=== PATIENT | female | born 1960 | race Caucasian/White ===

== ENCOUNTER → 2016-06-01 | Outpatient (CLI) | payer OTHER ==
--- NOTE | 2016-06-02 07:17 | MM ---
Reason for exam: history of breast cancer, conservation therapy. Last mammogram was performed 2 years ago. History: Patient is postmenopausal, has history of other cancer at age 49, has history of breast cancer at age 48, and had previous chest radiation therapy at age 48. Family history of breast cancer in paternal aunt at age 80 and breast cancer in maternal grandfather at age 60. Benign US RT VAD breast biopsy of the right breast, June 01, 2012. Benign US RT VAD breast biopsy of the right breast, June 01, 2012. Excisional biopsy of the right breast, October 04, 2008. Malignant right mammotome panel of the right breast, September 18, 2008. Lumpectomy, 2008. Radiation therapy of the right breast, 2008. Taking tamoxifen for 10 years. Took other hormone for 5 years. Physical Findings: Nurse did not find any significant physical abnormalities on exam. MG 3D Diag Mammo W/Cad PERNELL Bilateral CC and MLO view(s) were taken. Prior study comparison: June 03, 2014, bilateral MG diagnostic mammo w CAD PERNELL. May 31, 2013, CAD bilateral diagnostic mammogram. There are scattered fibroglandular densities. Finding #1: Architectural distortion in the upper outer quadrant, posterior position of the right breast consistent with known lumpectomy. Finding #2: There are typically benign round calcifications in both breasts. Persistent skin thickening in the right breast. These results were verbally communicated with the patient and result sheet given to the patient on 06/01/16. ASSESSMENT: Benign, BI-RAD 2 RECOMMENDATION: Follow-up diagnostic mammogram of both breasts in 1 year.
--- NOTE | 2016-06-02 07:24 | BD ---
EXAMINATION TYPE: MG DEXA axial skeleton. DATE OF EXAM: 06/01/2016 3:47 PM COMPARISON: NONE CLINICAL HISTORY: Breast carcinoma, C50.919 Height: Weight: FRAX RISK QUESTIONS: Alcohol (3 or more units per day): yes Family History (Parent hip fracture): yes/mother Glucocorticoids (More than 3mos): no (Ex: prednisone, prednisolone, methylprednisolone, dexamethasone, and hydrocortisone). History of Fracture in Adulthood: yes Secondary Osteoporosis: 1. Type 1 Diabetes: no 2. Hyperthyroidism: no 3. Menopause before 45: no 4. Malnutrition: no 5. Chronic liver disease: no Rheumatoid Arthritis: no Current Tobacco Use: no RISK FACTORS HISTORY OF: Hip Fracture (Right/Left): no Spine Fracture: no History of Wrist Fracture: no Surgery to Spine/Hip(right/left)/Wrist (right/left): right hip When: 2006 Family History of Osteoporosis: yes/ mother/grandmother Active: yes Diet low in dairy products/other sources of calcium: no Postmenopausal woman: age 48 Lost more than 2 inches in height since high school: no Frequent falls: no Adrenal Insufficiency: no MEDICATIONS: arimadex Thyroid Medications: levathyroxine, How Long: since 2009 Additional History: breast and thyroid cancer EXAM MEASUREMENTS: Bone mineral densitometry was performed using the [employer] System. Bone mineral density as measured about the Lumbar spine is: ----- L1-L4(G/cm2): 1.319 T Score Values are as follows: ----- L2: 0.8 ----- L3: 2.0 ----- L4: 1.0 ----- L1-L4: 1.2 Bone mineral density has: decreased -1.4 % since study of: 05.31.2013 Bone mineral density about the L hip (g/cm2): 1.036 T Score values are as follows: -----L Neck: 0.0 -----L Intertrochanter: -0.1 Bone mineral density has: decreased -4.6 % since study of: 05.31.2013 IMPRESSION: Normal bone density NOTE: T-SCORE=SD OF THE YOUNG ADULT MEAN.
== END | disposition home or self-care (01) ==
LOC: RADMAMWWP 14:37
PROVIDERS: ATTEND Internal Medicine Hematology & Oncology
DX: Z08 Encounter for follow-up examination after completed treatment for malignant neoplasm (principal); N95.1 Menopausal and female climacteric states; Z85.3 Personal history of malignant neoplasm of breast; Z79.890 Hormone replacement therapy
CPT/HCPCS: 77080; 77051 ×2; G0204; G0279

== ENCOUNTER → 2017-07-18 | Outpatient (CLI) | payer OTHER ==
--- NOTE | 2017-07-18 13:34 | MM ---
Reason for exam: additional evaluation requested from prior study. Last mammogram was performed 1 year and 2 months ago. History: Patient is postmenopausal, has history of other cancer at age 49, has history of breast cancer at age 48, and had previous chest radiation therapy at age 48. Family history of breast cancer in paternal aunt at age 80 and breast cancer in maternal grandfather at age 60. Benign US RT VAD breast biopsy of the right breast, June 01, 2012. Benign US RT VAD breast biopsy of the right breast, June 01, 2012. Excisional biopsy of the right breast, October 04, 2008. Malignant right mammotome panel of the right breast, September 18, 2008. Lumpectomy, 2008. Radiation therapy of the right breast, 2008. Taking tamoxifen for 10 years. Took other hormone for 5 years. Physical Findings: Nurse did not find any significant physical abnormalities on exam. MG 3D Diag Mammo W/Cad PERNELL Bilateral CC and MLO view(s) were taken. XCCL view(s) were taken of the right breast. Prior study comparison: June 01, 2016, bilateral MG 3d diag mammo w/cad PERNELL. June 03, 2014, bilateral MG diagnostic mammo w CAD PERNELL. There are scattered fibroglandular densities. Right posterior therapy change. These results were verbally communicated with the patient and result sheet given to the patient on 07/18/17. ASSESSMENT: Benign, BI-RAD 2 RECOMMENDATION: Follow-up diagnostic mammogram of both breasts in 1 year.
== END | disposition home or self-care (01) ==
LOC: RADMAMWWP 12:26
PROVIDERS: ATTEND Internal Medicine Hematology & Oncology
DX: Z08 Encounter for follow-up examination after completed treatment for malignant neoplasm (principal); Z85.3 Personal history of malignant neoplasm of breast
CPT/HCPCS: 77066; G0279

== ENCOUNTER 2018-06-08 00:45 | Inpatient (IN) | payer OTHER ==
[2018-06-08] MEDS ORDERED: ACETAMINOPHEN IV (For NPO) 1,000 MG in EMPTY BAG 1 BAG IVPB STA (00:59)
--- NOTE | 2018-06-08 01:16 | ED ---
Abdominal Pain HPI <PeñadelfinaSeven - Last Filed: 06/08/18 01:52> - General Source: patient, EMS, RN notes reviewed Mode of arrival: EMS Limitations: no limitations <Concepcion Thurston - Last Filed: 06/08/18 02:43> - General Chief Complaint: Abdominal Pain Stated Complaint: Appendicitis Time Seen by Provider: 06/08/18 00:47 - History of Present Illness Initial Comments: 58-year-old female patient presents to the emergency department today as a transfer from [facility] for acute appendicitis. Patient states that starting early this morning she had some vague upper abdominal pain and vomiting. Patient states her pain then moved into the right lower quadrant and became more severe. Patient states she did have fever at home. States she's been unable to eat or drink all day. She has had some gynecological surgeries but no other abdominal surgeries. She denies any constipation or diarrhea with this. Denies any chest pain, shortness breath, cough, nasal congestion, or sore throat. Patient denies any recent rash, constipation, back pain, numbness , tingling, dizziness, weakness, hematuria, dysuria, urinary urgency, urinary frequency, headache, visual changes, or any other complaints. (Concepcion Thurston) - Related Data Home Medications Medication Instructions Recorded Confirmed Acetaminophen [Tylenol] 500 mg PO Q4-6H PRN 06/08/18 06/08/18 Corbin/D3/Mag11/Zinc/Road Grader Operator/Chuy/Bor 1 each PO DAILY 06/08/18 06/08/18 [Caltrate 600+D Plus Tablet] Cholecalciferol (Vitamin D3) 2,000 unit PO ONCE 06/08/18 06/08/18 [Vitamin D3] Fish Oil/Dha/Epa [Fish Oil 1,200 1,000 mg PO DAILY 06/08/18 06/08/18 mg Fish Oil] Ibuprofen [Advil] 200 mg PO Q8HR PRN 06/08/18 06/08/18 Levothyroxine Sodium [Synthroid] 125 mcg PO DAILY 06/08/18 06/08/18 Turmeric Root Extract [Turmeric] 500 mg PO ONCE 06/08/18 06/08/18 Allergies Allergy/AdvReac Type Severity Reaction Status Date / Time celecoxib [From Celebrex] Allergy Unknown Verified 06/08/18 01:08 nitrofurantoin Allergy Unknown Verified 06/08/18 01:08 [From Macrodantin] Sulfa (Sulfonamide Allergy Unknown Verified 06/08/18 01:08 Antibiotics) sulfamethoxazole Allergy Unknown Verified 06/08/18 01:08 [From Bactrim] trimethoprim [From Bactrim] Allergy Unknown Verified 06/08/18 01:08 codeine AdvReac Nausea & Verified 06/08/18 01:08 Vomiting Review of Systems ROS Other: All systems not noted in ROS Statement are negative. <Seven Montez - Last Filed: 06/08/18 01:52> ROS Other: All systems not noted in ROS Statement are negative. <Concepcion Thurston - Last Filed: 06/08/18 02:43> ROS Statement: Those systems with pertinent positive or pertinent negative responses have been documented in the HPI. Past Medical History Past Medical History: Thyroid Disorder Past Surgical History: Breast Surgery, Section, Orthopedic Surgery, Tubal Ligation Additional Past Surgical History / Comment(s): thyroidectomy, right lumpectomy, right hip artificial hip, right foot graft, Smoking Status: Never smoker Past Alcohol Use History: Occasional Past Drug Use History: None Reported <Concepcion Thurston - Last Filed: 06/08/18 02:43> General Exam Limitations: no limitations General appearance: alert, in no apparent distress, other (Physical well- developed, well-nourished adult female patient in no acute distress. Vital signs upon presentation are temperature 102.2F, pulse 123, respirations 18, blood pressure 112/78, pulse ox 96% on room air.) Eye exam: Present: normal appearance, PERRL, EOMI. Absent: scleral icterus, conjunctival injection, periorbital swelling ENT exam: Present: normal exam, normal oropharynx, mucous membranes moist Respiratory exam: Present: normal lung sounds bilaterally. Absent: respiratory distress, wheezes, rales, rhonchi, stridor Cardiovascular Exam: Present: normal rhythm, tachycardia, normal heart sounds. Absent: systolic murmur, diastolic murmur, rubs, gallop, clicks GI/Abdominal exam: Present: soft, tenderness (Right lower quadrant tenderness), normal bowel sounds. Absent: distended, guarding, rebound, rigid Neurological exam: Present: alert, oriented X3, CN II-XII intact Psychiatric exam: Present: normal affect, normal mood Skin exam: Present: warm, dry, intact, normal color. Absent: rash <Concepcion Thurston - Last Filed: 06/08/18 02:43> Course <Seven Montez - Last Filed: 06/08/18 01:52> <Concepcion Thurston - Last Filed: 06/08/18 02:43> Vital Signs 06/08/18 00:51 Temperature 102.2 F H Pulse Rate 123 H Respiratory 18 Rate Blood Pressure 112/78 O2 Sat by Pulse 96 Oximetry - Reevaluation(s) Reevaluation #1: 06/08/18 01:52 I saw this patient in conjunction with the physician business office assistant. I performed independent history and physical exam. Agree with case management. Case discussed with surgeon on-call, Dr. Thompson. (Seven Montez) Medical Decision Making <Seven Montez - Last Filed: 06/08/18 01:52> - Radiology Data Radiology results: report reviewed <Concepcion Thurston - Last Filed: 06/08/18 02:43> - Medical Decision Making 58-year-old female patient presented to the emergency department today for evaluation after being transferred from [facility] for acute appendicitis. Patient is reporting right lower quadrant abdominal pain as well as vomiting throughout the day today. Physical examination did reveal right lower quadrant tenderness. I did review records from [facility] CT abdomen and pelvis with contrast was obtained and was positive for fluid-filled an enlarged appendix consistent with acute appendicitis. Patient's labs reviewed and did show an elevated white blood cell count at 17.1, neutrophil count 13. Patient symptoms, radiology findings, and lab findings are consistent with acute appendicitis. We'll admit to the hospital for surgical intervention. Patient has been given Zosyn. She'll be given overnight here for elevated temperature and pain. She verbalizes understanding and agrees with plan to (Concepcion Thurston) - Radiology Data CT abdomen and pelvis is obtained at [facility] shows fluid-filled enlarged appendix consistent with acute appendicitis. No bowel obstruction or mucosal thickening. Impression is by Dr. Patiño shows findings representing acute appendicitis. Small amount of free pelvic fluid. Inflammatory changes around the appendix. (Concepcion Thurston) Disposition <Seven Montez - Last Filed: 06/08/18 01:52> Decision to Admit Reason: Admit from Decision Date: 06/08/18 Decision Time: 02:43 <Concepcion Thurston M - Last Filed: 06/08/18 02:43> Clinical Impression: Acute appendicitis Disposition: ADMITTED IP TO THIS HOSP Condition: Serious Referrals: Benton Velazquez MD [Primary Care Provider] - 1-2 days
[2018-06-08] MEDS: ONDANSETRON 4 MG/2 ML VIAL IVP STA ×2 (01:48→16:51)
[2018-06-08] MEDS ORDERED: NALOXONE 0.4 MG/ML 1 ML VIAL IV PRN (02:41)
[2018-06-08] MEDS: MORPHINE SULFATE 4 MG/ML SYRINGE IV PRN ×3 (03:01→11:35)
[2018-06-08] MEDS: SODIUM CHLORIDE 0.9% 1,000 ML IV SCH ×5 (03:39→22:18)
[2018-06-08 04:46] VITALS: BMI 34.7
[2018-06-08] MEDS: ONDANSETRON 4 MG/2 ML VIAL IVP PRN (07:33)
[2018-06-08] MEDS ORDERED: HEPARIN SODIUM,PORCINE 5,000 UNIT/ML 1 ML VIAL SQ ONE (08:31)
[2018-06-08] MEDS ORDERED: ceFAZolin IN SWFI 2 GM/20 ML SYRINGE IVP ONE (08:31)
[2018-06-08] MEDS ORDERED: SODIUM CHLORIDE 0.9% 1,000 ML IV ONE (11:43)
[2018-06-08 12:26] LABS: Basophils % (A) 0 %; Eosinophils % (A) 0 %; HCT 40.8 % (34.0-46.0); HGB 13.8 gm/dL (11.4-16.0); Lymphocytes # (A) 1.3 k/uL (1.0-4.8); Lymphocytes % (A) 7 %; MCH 31.8 pg (25.0-35.0); MCHC 33.8 g/dL (31.0-37.0); MCV 94.1 fL (80.0-100.0); Mean Platelet Volume 6.9; Monocytes # (A) 0.6 k/uL (0-1.0); Monocytes % (A) 4 %; Neutrophils # (A) 15.2 k/uL (1.3-7.7); Neutrophils % (A) 88 %; Platelet Count 206 k/uL (150-450); RBC 4.33 m/uL (3.80-5.40); RDW 12.8 % (11.5-15.5); WBC 17.3 k/uL (3.8-10.6)
[2018-06-08 12:33] LABS: Anion Gap 9 mmol/L; Blood Urea Nitrogen 12 mg/dL (7-17); Calcium 8.6 mg/dL (8.4-10.2); Carbon Dioxide 25 mmol/L (22-30); Chloride 104 mmol/L (98-107); Glucose 115 mg/dL (74-99); Potassium 3.7 mmol/L (3.5-5.1); Sodium 138 mmol/L (137-145)
[2018-06-08] MEDS: PIPERACILLIN-TAZOBACTAM 3.375 GM in SODIUM CHLORIDE 0.9% 100 ML IVPB SCH ×2 (13:31→22:15)
--- NOTE | 2018-06-08 15:09 | P.GSHP ---
<Jennifer Felpie A - Last Filed: 06/08/18 15:07> History of Present Illness H&P Date: 06/08/18 Chief Complaint: abdominal pain CHIEF COMPLAINT: abdominal pain HISTORY OF PRESENT ILLNESS: 58-year-old female who was transferred from [place] secondary to abdominal pain. The patient states she began having generalized abdominal pain 2 days ago. She reports it was mostly near the epigastric region and then moved to the right lower quadrant. She reports episodes of nausea and vomiting prior to coming to the hospital. Denies constipation or diarrhea. Reports feeling feverish at home. CT report from previous hospital reports positive fluid-filled and enlarged appendix consistent with acute appendicitis. PAST MEDICAL HISTORY: See list. PAST SURGICAL HISTORY: See list. MEDICATIONS: See list. ALLERGIES: See list. SOCIAL HISTORY: No illicit drug use. Patient is a former cigarette smoker. REVIEW OF ORGAN SYSTEMS: CONSTITUTIONAL: Patient reports feeling feverish over the past week. HEENT: No troubles with vision or hearing. ENDOCRINE: No reports of thyroid disorders. CARDIOVASCULAR: Denies chest pain or pressure. RESPIRATORY: No shortness of breath or pneumonia. GASTROINTESTINAL: Reports abdominal pain 2 days. Initially near epigastric region and now right lower quadrant. NEURO: No reports of stroke or seizure disorders. PSYCH: No depression or suicidal ideation HEMATOLOGIC: No easy bruising or bleeding LYMPHATIC: The patient denies any lumps and bumps around the neck. GENITOURINARY: Denies any blood in urine or increased urinary frequency. MUSCULOSKELETAL: Denies back pain, stiffness or joint arthritis. SKIN: Denies rash or cellulitis PHYSICAL EXAM: VITAL SIGNS: Currently stable. GENERAL: Well-developed in no acute distress. HEENT: No sclera icterus. Extraocular movements grossly intact. Moist buccal mucosa. Head is atraumatic, normocephalic. Hears conversational speech. No nasal drainage. NECK: Supple without lymphadenopathy. CHEST: Non-labored respirations and equal bilateral excursions. CARDIOVASCULAR: Regular rate with regular rhythm. Palpable 2+ radial pulses. ABDOMEN: Soft. Nondistended. Tenderness upon palpation of all 4 quadrant, most severe in right lower quadrant MUSCULOSKELETAL: No clubbing, cyanosis or edema. NEUROLOGIC: No focal or lateralizing signs. Cranial nerves II through XII grossly intact. PSYCH: Appropriate affect. Alert and oriented to person, place and time. SKIN: Well perfused. Good skin turgor. ASSESSMENT: 1. Abdominal pain x 2 days near epigastric region and now right lower quadrant , CT scan shows fluid filled and enlarged appendix consistent with acute appendicitis 2. Sepsis, patient presented with leukocytosis, fever, and tachycardia, secondary to above PLAN: 1. Obtain CBC and BMP 2. 1L bolus, followed by IV fluids at 125cc/hr 3. NPO 4. Begin Zosyn 5. Patient to undergo robotic appendectomy today with Dr. Thompson Nurse practitioner note has been reviewed by physician. Signing provider agrees with the documented findings, assessment, and plan of care. Past Medical History Past Medical History: Thyroid Disorder History of Any Multi-Drug Resistant Organisms: None Reported Past Surgical History: Breast Surgery, Section, Orthopedic Surgery, Tubal Ligation Additional Past Surgical History / Comment(s): thyroidectomy, right lumpectomy, right hip artificial hip, right foot graft, Past Anesthesia/Blood Transfusion Reactions: No Reported Reaction Past Psychological History: No Psychological Hx Reported Smoking Status: Former smoker Past Alcohol Use History: Occasional Past Drug Use History: None Reported - Past Family History Mother Family Medical History: AFIB, Cancer, Diabetes Mellitus, Osteoarthritis (OA) Father Family Medical History: Hyperlipidemia, Hypertension, Renal Disease Additional Family Medical History / Comment(s): father of renal failure Medications and Allergies Home Medications Medication Instructions Recorded Confirmed Type Corbin/D3/Mag11/Zinc/Optoelectronics Engineer/Chuy/Bor 1 tab PO DAILY 06/08/18 06/08/18 History [Caltrate 600+D Plus Tablet] Cholecalciferol (Vitamin D3) 2,000 unit PO DAILY 06/08/18 06/08/18 History [Vitamin D3] Fish Oil/Dha/Epa [Fish Oil 1,200 1,000 mg PO DAILY 06/08/18 06/08/18 History mg Fish Oil] Levothyroxine Sodium [Synthroid] 125 mcg PO DAILY 06/08/18 06/08/18 History Turmeric Root Extract [Turmeric] 500 mg PO DAILY 06/08/18 06/08/18 History Allergies Allergy/AdvReac Type Severity Reaction Status Date / Time celecoxib [From Celebrex] Allergy Rash/Hives Verified 06/08/18 07:58 nitrofurantoin Allergy Swelling Verified 06/08/18 07:58 [From Macrodantin] Sulfa (Sulfonamide Allergy Unknown Verified 06/08/18 07:58 Antibiotics) sulfamethoxazole Allergy Rash/Hives Verified 06/08/18 07:58 [From Bactrim] trimethoprim [From Bactrim] Allergy Rash/Hives Verified 06/08/18 07:58 codeine AdvReac Nausea & Verified 06/08/18 07:58 Vomiting Surgical - Exam Vital Signs Temp Pulse Resp BP Pulse Ox 102.2 F H 123 H 18 112/78 96 06/08/18 00:51 06/08/18 00:51 06/08/18 00:51 06/08/18 00:51 06/08/18 00:51 Results - Labs 06/08/18 11:54 06/08/18 11:54 <Jeanette Thompson N - Last Filed: 06/08/18 16:32> Surgical - Exam Vital Signs Temp Pulse Resp BP Pulse Ox 102.2 F H 123 H 18 112/78 96 06/08/18 00:51 06/08/18 00:51 06/08/18 00:51 06/08/18 00:51 06/08/18 00:51 Results - Labs 06/08/18 11:54 06/08/18 11:54 Abnormal Lab Results - Last 24 Hours (Table) 06/08/18 06/08/18 Range/Units 11:54 11:54 WBC 17.3 H (3.8-10.6) k/uL Neutrophils # 15.2 H (1.3-7.7) k/uL Glucose 115 H (74-99) mg/dL Diabetes panel 06/08/18 Range/Units 11:54 Sodium 138 (137-145) mmol/L Potassium 3.7 (3.5-5.1) mmol/L Chloride 104 (98-107) mmol/L Carbon Dioxide 25 (22-30) mmol/L BUN 12 (7-17) mg/dL Creatinine 0.79 (0.52-1.04) mg/dL Glucose 115 H (74-99) mg/dL Calcium 8.6 (8.4-10.2) mg/dL Calcium panel 06/08/18 Range/Units 11:54 Calcium 8.6 (8.4-10.2) mg/dL Pituitary panel 06/08/18 Range/Units 11:54 Sodium 138 (137-145) mmol/L Potassium 3.7 (3.5-5.1) mmol/L Chloride 104 (98-107) mmol/L Carbon Dioxide 25 (22-30) mmol/L BUN 12 (7-17) mg/dL Creatinine 0.79 (0.52-1.04) mg/dL Glucose 115 H (74-99) mg/dL Calcium 8.6 (8.4-10.2) mg/dL Adrenal panel 06/08/18 Range/Units 11:54 Sodium 138 (137-145) mmol/L Potassium 3.7 (3.5-5.1) mmol/L Chloride 104 (98-107) mmol/L Carbon Dioxide 25 (22-30) mmol/L BUN 12 (7-17) mg/dL Creatinine 0.79 (0.52-1.04) mg/dL Glucose 115 H (74-99) mg/dL Calcium 8.6 (8.4-10.2) mg/dL
--- NOTE | 2018-06-08 16:33 | P.HPADDEND ---
H&P Addendum H&P Addendum Date: 06/08/18 Patient seen and evaluated. All questions were addressed. History consistent with appendicitis. We'll proceed with appendectomy today. Continue with IV antibiotics postop.
[2018-06-08] MEDS ORDERED: IV FLUID CONTINUATION 1,000 ML IV ONE (16:51)
[2018-06-08] MEDS ORDERED: DEXAMETHASONE SOD PHOS (MDV) 100 MG/10 ML VIAL IVP ONE (16:56)
[2018-06-08] MEDS ORDERED: ROCURONIUM BROMIDE 10 MG/ML 10 ML VIAL IV ONE (18:19)
[2018-06-08] MEDS ORDERED: NEOSTIGMINE 1 MG/ML 10 ML VIAL ONE (18:19)
[2018-06-08] MEDS ORDERED: GLYCOPYRROLATE 0.2 MG/ML 2 ML VIAL ONE (18:19)
[2018-06-08] MEDS ORDERED: MIDAZOLAM 2 MG/2 ML VIAL ONE (18:19)
[2018-06-08] MEDS ORDERED: LIDOCAINE 1% INJ 10MG/ML (20 ML MDV) ONE (18:19)
[2018-06-08] MEDS ORDERED: fentaNYL (PF) 50 MCG/ML 2 ML AMP ONE (18:19)
[2018-06-08] MEDS ORDERED: ONDANSETRON 4 MG/2 ML VIAL ONE (18:19)
[2018-06-08] MEDS ORDERED: PROPOFOL 10 MG/ML 20 ML VIAL IV ONE (18:19)
[2018-06-08] MEDS ORDERED: LACTATED RINGERS 1,000 ML IV ONE (18:51)
[2018-06-08] MEDS ORDERED: BUPIVACAIN-EPI 0.25%-1:200,000 30 ML VIAL SQ ONE (19:16)
[2018-06-08] MEDS ORDERED: METOCLOPRAMIDE 5 MG/ML 2 ML VIAL IVP PRN (20:29)
--- NOTE | 2018-06-08 20:40 | P.OP ---
Date of Procedure: 06/08/18 Description of Procedure: SURGEON: JEANETTE THOMPSON MD Preoperative Diagnosis: 1. Right lower quadrant abdominal pain 2. Acute appendicitis. 3. Hypothyroidism 4. Obesity due to excess calories, BMI 34.7 Postoperative Diagnosis: 1. Right lower quadrant abdominal pain 2. Acute appendicitis, ruptures with intra-abdominal abscess 3. Peritonitis 4. Hypothyroidism 5. Sepsis 6. Obesity due to excess calories, BMI 34.7 Procedure(s) Performed: 1. Robotic-assisted daVinci Xi laparoscopic lysis of adhesions over 30 minutes 2. Robotic-assisted daVinci Xi laparoscopic appendectomy 3. Placement of CONNIE drain #19 right lower quadrant 4. Peritoneal lavage 1000 mL normal saline Anesthesia: GETA, local Surgeon: Jeanette Thompson Estimated Blood Loss (ml): 5 Pathology: other (appendix, aerobic and anerobic culture of peritoneal fluid from peritonitis) Condition: stable Disposition: floor Operative Findings: 1. Localized abscess over 50-mL drained right lower quadrant 2. Gangrenous ruptured purulent appendicitis near base of appendix 3. Abdomen irrigated with 1000-mL normal saline 4. CONNIE drain placed at right lower quadrant of abscess pocket 5. Appendix resected at base with inflammation at cecum 6. Staple line hemostatic INDICATIONS: The patient is a 58-year-old female who presents with acute appendicitis including fevers and peritonitis consistent with sepsis. Surgical intervention was described in detail. Benefits and risks, including infection, open surgery, and possibility for additional surgery was discussed at length. Informed consent was obtained. All questions of the patient and family were answered. DESCRIPTION: The patient was transferred to the operating room and placed in supine position. The patient had previously voided. The abdomen was then prepped and draped in standard sterile fashion as Ioban was placed along the abdomen to minimize any contamination of skin floor. After a timeout protocol was performed, attention was then brought to the left upper quadrant whereby a 0 degree 5 mm laparoscopic trocar entry was performed. The abdominal cavity was entered and insufflated to 15 mmHg pressure, which was tolerated well. Diagnostic laparoscopy demonstrated no injury to bowel, viscera or mesentery. Adhesions were confirmed of the right lower quadrant of omentum, small bowel to the abdominal wall. Localized abscess was found. Next a robotic 12-mm trocar was placed along the right upper quadrant, 15-cm superior from the pelvis. A 8 mm port was placed along the left lower quadrant and another 8-mm port along the epigastrium. Ports were placed 10 cm apart from each other including 15-20 cm away from the target anatomy of the right pelvis. The patient was then placed in Trendelenburg position, at least 14 and right side up at least 6. The robotic da Nicko XI system was primed and docked from the left side of the patient. Using atraumatic graspers and vessel sealer, the robotic system was docked and primed as described. Instruments were interchanged by the assistant nurse manager including graspers, robotic stapler and vessel sealer. Next, attention was brought to identify the cecum. A systematic view within the abdominal cavity was started with the small bowel which was remarkable for diffuse fibrinous exudate throughout the pelvis. The base of the cecum was with inflammation. The appendix was ruptured near the base with moderate dissection performed. The abscess of 50-mL was aspirated from the abdomen. A 45 mm blue robotic staple loads were fired along the base of the appendix. The staple line was hemostatic. Hemostasis was checked prior to undocking the robot. The robot was undocked. I re-scrubbed into the case. A round #19 drain was placed via the left lower quadrant port and positioned at the right lower quadrant and pelvis after irrigating the abdomen with 1000-mL of normal saline until the aspirant was clear. A drain stitch 2-0 nylon was placed with the bulb attached separately. The specimen was removed from the abdominal cavity with an Endo Catch bag through the 12 mm trocar at the right upper quadrant. All instruments and pneumoperitoneum were evacuated from the abdominal cavity. Local anesthetic was infiltrated to all wounds for postop analgesia. All incisions were also cleansed with diluted hydrogen peroxide. An Optifoam surgical dressing was placed over the right upper quadrant incision and drain site. Exofin glue was applied to the rest of the skin incisions. The patient had tolerated the procedure well. The patient was extubated successfully. The patient was transferred to the postanesthesia care unit in stable condition.
[2018-06-08] MEDS ORDERED: ACETAMINOPHEN IV (For NPO) 1,000 MG in EMPTY BAG 1 BAG IVPB ONE (21:00)
[2018-06-09] MEDS: MORPHINE SULFATE 4 MG/ML SYRINGE IV PRN (01:37)
[2018-06-09] MEDS: PIPERACILLIN-TAZOBACTAM 3.375 GM in SODIUM CHLORIDE 0.9% 100 ML IVPB SCH ×3 (05:23→23:03)
[2018-06-09] MEDS: SODIUM CHLORIDE 0.9% 1,000 ML IV SCH ×5 (05:23→23:10)
[2018-06-09] MEDS: ENOXAPARIN 40 MG/0.4 ML SYRINGE SQ SCH (08:30)
[2018-06-09] MEDS: PANTOPRAZOLE 40 MG/10 ML VIAL IV SCH (08:30)
[2018-06-09] MEDS: HYDROcodone/APAP 5-325MG 1 EACH TAB PO PRN ×2 (08:39→14:59)
[2018-06-09 08:47] LABS: Basophils % (A) 0 %; Eosinophils % (A) 0 %; HCT 34.1 % (34.0-46.0); HGB 11.2 gm/dL (11.4-16.0); Lymphocytes # (A) 1.1 k/uL (1.0-4.8); Lymphocytes % (A) 6 %; MCH 30.6 pg (25.0-35.0); MCHC 32.8 g/dL (31.0-37.0); MCV 93.3 fL (80.0-100.0); Mean Platelet Volume 6.5; Monocytes # (A) 0.4 k/uL (0-1.0); Monocytes % (A) 2 %; Neutrophils # (A) 15.3 k/uL (1.3-7.7); Neutrophils % (A) 91 %; Platelet Count 180 k/uL (150-450); RBC 3.66 m/uL (3.80-5.40); RDW 12.7 % (11.5-15.5); WBC 16.8 k/uL (3.8-10.6)
--- NOTE | 2018-06-09 12:02 | P.PN ---
Subjective Progress Note Date: 06/09/18 CHIEF COMPLAINT: abdominal pain HISTORY OF PRESENT ILLNESS: 58-year-old female who was transferred from [place] secondary to abdominal pain. The patient was found to have acute appendicitis. Patient underwent robotic-assisted laparoscopic appendectomy, lysis of adhesions, and peritoneal lavage. POD #1. Patient was found to have gangrenous ruptured purulent appendicitis near the appendix and a localized abscess with over 50cc of drainage. Patient is resting comfortably at the bedside. Reports pain is tolerable. Passing flatus. Denies bowel movement. No nausea or vomiting. CONNIE intact. 220cc over last 24 hours per EMR. WBC is 16.8 today, down from 17.3 yesterday. She is afebrile. PHYSICAL EXAM: VITAL SIGNS: Currently stable. GENERAL: Well-developed in no acute distress. HEENT: No sclera icterus. Extraocular movements grossly intact. Moist buccal mucosa. Head is atraumatic, normocephalic. Hears conversational speech. No nasal drainage. NECK: Supple without lymphadenopathy. CHEST: Non-labored respirations and equal bilateral excursions. CARDIOVASCULAR: Regular rate with regular rhythm. Palpable 2+ radial pulses. ABDOMEN: Soft. Nondistended. Dressing clean dry and intact. CONNIE drain to left lower quadrant intact. MUSCULOSKELETAL: No clubbing, cyanosis or edema. NEUROLOGIC: No focal or lateralizing signs. Cranial nerves II through XII grossly intact. PSYCH: Appropriate affect. Alert and oriented to person, place and time. SKIN: Well perfused. Good skin turgor. ASSESSMENT: 1. Abdominal pain x 2 days 2. Acute appendicitis, ruptured with intra-abdominal abscess 3. Peritonitis 4. Sepsis, patient presented with leukocytosis, fever, and tachycardia, secondary to above 5. Obesity due to excess calories, BMI 34.7 PLAN: 1. Continue antibiotics 2. Consult infectious disease for evaluation 3. Monitor WBC. Daily CBC. 4. Incentive spirometry 5. Increase activity as tolerated 6. Patient may begin clear liquid diet this morning Nurse practitioner note has been reviewed by physician. Signing provider agrees with the documented findings, assessment, and plan of care. Objective - Vital Signs Vital signs: Vital Signs Temp 98.7 F 06/09/18 08:28 Pulse 85 06/09/18 08:28 Resp 16 06/09/18 08:45 BP 94/63 06/09/18 08:28 Pulse Ox 90 L 06/09/18 08:28 Intake & Output 06/08/18 06/09/18 06/09/18 18:59 06:59 18:59 Intake Total 1500 100 Output Total 255 Balance 1500 -155 Intake: IV 1500 100 Output: Drainage 220 Abdomen 220 Estimated Blood Loss 35 Other: Voiding Method Toilet Toilet # Voids 1 2 - Labs CBC & Chem 7: 06/09/18 06:59 06/08/18 11:54 Labs: Abnormal Lab Results - Last 24 Hours (Table) 06/08/18 06/08/18 06/09/18 Range/Units 11:54 11:54 06:59 WBC 17.3 H 16.8 H (3.8-10.6) k/uL RBC 3.66 L (3.80-5.40) m/uL Hgb 11.2 L (11.4-16.0) gm/dL Neutrophils # 15.2 H 15.3 H (1.3-7.7) k/uL Glucose 115 H (74-99) mg/dL Microbiology - Last 24 Hours (Table) 06/08/18 20:00 Gram Stain - Preliminary Other - Other Wound Culture - Preliminary 06/08/18 20:00 Anaerobic Culture - Preliminary Peritoneal Fluid Assessment and Plan (1) Ruptured appendicitis Current Visit: Yes Status: Acute Code(s): K35.32 - ACUTE APPENDICITIS WITH PERF AND LOC PERITONITIS, W/O ABSCS SNOMED Code(s): 27347641 (2) Sepsis Current Visit: Yes Status: Acute Code(s): A41.9 - SEPSIS, UNSPECIFIED ORGANISM SNOMED Code(s): 24993957 (3) Leukocytosis Current Visit: Yes Status: Acute Code(s): D72.829 - ELEVATED WHITE BLOOD CELL COUNT, UNSPECIFIED SNOMED Code(s): 714330612 (4) Obesity (BMI 30.0-34.9) Current Visit: Yes Status: Acute Code(s): E66.9 - OBESITY, UNSPECIFIED SNOMED Code(s): 827591760657600 (5) Peritonitis Current Visit: Yes Status: Acute Code(s): K65.9 - PERITONITIS, UNSPECIFIED SNOMED Code(s): 45688894 (6) Right lower quadrant abdominal pain Current Visit: Yes Status: Acute Code(s): R10.31 - RIGHT LOWER QUADRANT PAIN SNOMED Code(s): 924725951 (7) Acute appendicitis Current Visit: Yes Status: Acute Code(s): K35.80 - UNSPECIFIED ACUTE APPENDICITIS SNOMED Code(s): 54086693
[2018-06-09] MEDS: ONDANSETRON 4 MG/2 ML VIAL IVP PRN (23:07)
--- NOTE | 2018-06-10 04:39 | CONS ---
CONSULTATION DATE OF SERVICE: 06/09/2018. REASON FOR CONSULTATION: Abdominal abscess and ruptured appendicitis. HISTORY OF PRESENT ILLNESS: The patient is a 58-year-old female presenting to the ER at [facility] on 06/08/2018 in the morning with chief complaints of 1-day history of intractable nausea, vomiting, unable to keep anything down along with the right lower abdominal pain. The pain has been mostly sharp in nature, almost 10/10, with severe. The patient denies any diarrhea or any constipation. The patient did have associated fever with chills. With these symptoms, the patient did present to the hospital. The patient has been diagnosed with acute appendicitis. Patient was taken to the OR last night. The patient was noticed to have acute ruptured appendicitis with intraabdominal abscess. The patient is status post laparoscopic lysis of adhesions and laparoscopic appendectomy and drainage of an abscess and drain placement. The patient postop has been treated with Zosyn. I was asked to see the patient today for further recommendation regarding antibiotic therapy. The patient did have fever 102.2 Fahrenheit on admission, with afebrile this morning. The patient also had elevated white count 17.3, repeat 16.8. Further cultures are currently pending. REVIEW OF SYSTEMS: Positive points have been mentioned in HPI. Rest of the 14 systems has been negative. PAST MEDICAL HISTORY: Hypothyroidism. PAST SURGICAL HISTORY: Surgical history: , tubal ligation, thyroidectomy, right lumpectomy, artificial hip and right foot surgery. SOCIAL HISTORY: Remote history of smoking. Occasionally drinks. No drug use. FAMILY HISTORY: Mother with history of atrial fibrillation, diabetes mellitus. Father with history of hypertension, hyperlipidemia and of renal failure. ALLERGIES: TO CELEBREX, NITROFURANTOIN, SULFA AND CODEINE. MEDICATIONS: Medications include the patient is currently on [place], Lovenox, Reglan, morphine sulfate, Narcan, Zofran, Protonix, Zosyn. PHYSICAL EXAMINATION: Her blood pressure is a 94/63, pulse of 85, temperature 98.7. She is 98% on room air. General description is a middle-aged female up in the chair in no distress. No tachypnea or accessory muscles of respiration use. HEENT: Shows no pallor or scleral icterus. Oral mucosal membranes are dry. No pharyngeal erythema or thrush. Neck: Trachea central. No thyromegaly. Lungs unlabored breathing. Clear to auscultation anteriorly. No wheeze or crackles. Heart S1, S2. Regular rate and rhythm. . ABDOMEN: Soft, no tenderness. No guarding. No rigidity. EXTREMITIES: No edema of feet. Skin examination: No rash or mass palpable. Neurological: Patient is awake, alert, oriented times three. Mood and affect normal. LABS: Hemoglobin is 11.2, white count 16.8. The patient is a 17.3. DIAGNOSTIC IMPRESSION AND PLAN: Patient with intraabdominal abscess from ruptured appendicitis status post laparoscopic appendectomy and drainage of the abscess in this patient who presented to hospital with sepsis with fever 102 Fahrenheit, tachycardia and elevated white count. The likely organism needed to cover will be the enteric gram-negative both aerobes and anaerobes in this patient who has not been on antibiotic in the recent past could be sensitive pathogen such as E coli. PLAN: 1. Zosyn 3.375 q.8h should provide adequate coverage for the gram pathogen. Both aerobes and anaerobes that will be continued while we wait for the culture to finalize. 2. Depending upon clinical response as well as cultures, will adjust her medications further if needed. Thank you for this consultation. Will follow this patient along with you. MMODL / IJN: [id number] /
[2018-06-10] MEDS: PIPERACILLIN-TAZOBACTAM 3.375 GM in SODIUM CHLORIDE 0.9% 100 ML IVPB SCH ×3 (05:05→21:28)
[2018-06-10] MEDS: SODIUM CHLORIDE 0.9% 1,000 ML IV SCH ×4 (05:06→22:14)
[2018-06-10 08:24] LABS: Basophils % (A) 0 %; Eosinophils # (A) 0.1 k/uL (0-0.7); Eosinophils % (A) 0 %; HGB 11.1 gm/dL (11.4-16.0); Lymphocytes % (A) 12 %; MCH 30.7 pg (25.0-35.0); MCHC 32.8 g/dL (31.0-37.0); MCV 93.7 fL (80.0-100.0); Mean Platelet Volume 6.6; Monocytes # (A) 0.5 k/uL (0-1.0); Monocytes % (A) 3 %; Neutrophils # (A) 14.1 k/uL (1.3-7.7); Neutrophils % (A) 84 %; Platelet Count 203 k/uL (150-450); RBC 3.63 m/uL (3.80-5.40); RDW 12.8 % (11.5-15.5); WBC 16.8 k/uL (3.8-10.6)
--- NOTE | 2018-06-10 10:09 | P.PN ---
Subjective Progress Note Date: 06/10/18 Principal diagnosis: Appendicitis Patient doing better today. Her pain is improved. White blood cell count 16.8. She is tolerating clears and is hungry. She had a bowel movement. Objective - Vital Signs Vital signs: Vital Signs Temp 98.3 F 06/10/18 08:00 Pulse 86 06/10/18 08:00 Resp 16 06/10/18 08:00 BP 113/74 06/10/18 08:00 Pulse Ox 93 L 06/10/18 08:00 Intake & Output 06/09/18 06/10/18 06/10/18 18:59 06:59 18:59 Intake Total 1300 118 Output Total 140 Balance 1300 -22 Intake: Intake, IV Titration 1100 Amount Piperacillin-Tazobactam 3 100 .375 gm In Sodium Chloride 0.9% 100 ml @ 25 mls/hr IVPB Q8H DAF[facility] Rx#: [id number] Sodium Chloride 0.9% 1, 1000 000 ml @ 125 mls/hr IV . Q8H DAFNE Rx#:[id number] Oral 200 118 Output: Drainage 140 Abdomen 140 Other: Voiding Method Toilet # Voids 1 # Bowel Movements 2 - Exam Abdomen: Soft, nondistended, mild tenderness, incisions clean and dry - Labs CBC & Chem 7: 06/10/18 07:29 06/08/18 11:54 Labs: Abnormal Lab Results - Last 24 Hours (Table) 06/10/18 Range/Units 07:29 WBC 16.8 H (3.8-10.6) k/uL RBC 3.63 L (3.80-5.40) m/uL Hgb 11.1 L (11.4-16.0) gm/dL Neutrophils # 14.1 H (1.3-7.7) k/uL Microbiology - Last 24 Hours (Table) 06/08/18 20:00 Gram Stain - Preliminary Other - Other Wound Culture - Preliminary Gram Neg Bacilli Assessment and Plan (1) Acute appendicitis Narrative/Plan: Increase diet. Continue to manage. Ambulate. Recheck CBC tomorrow. Current Visit: Yes Status: Acute Code(s): K35.80 - UNSPECIFIED ACUTE APPENDICITIS SNOMED Code(s): 60626995
[2018-06-10] MEDS: PANTOPRAZOLE 40 MG/10 ML VIAL IV SCH (10:43)
[2018-06-10] MEDS: ENOXAPARIN 40 MG/0.4 ML SYRINGE SQ SCH (10:43)
[2018-06-10] MEDS ORDERED: MORPHINE ORAL SOLN 10 MG/5 ML CUP PO PRN (16:26)
[2018-06-10] MEDS: HYDROcodone/APAP 5-325MG 1 EACH TAB PO PRN (22:41)
--- NOTE | 2018-06-11 00:18 | PN ---
PROGRESS NOTE DATE OF SERVICE: 06/10/2018. REASON FOR FOLLOWUP: Abdominal abscess from ruptured appendicitis. INTERVAL HISTORY: The patient is currently afebrile. She is breathing comfortably. Abdominal pain is currently controlled. Denies having any nausea, vomiting, or any diarrhea. PHYSICAL EXAMINATION: Blood pressure is 115/77 with a pulse of 73, temperature 98.4. He is 98% on room air. GENERAL DESCRIPTION: A middle-aged female up in the bed in no distress. RESPIRATORY SYSTEM: Unlabored breathing. Decreased breath sounds in the bases. No wheeze. HEART: S1, S2. Regular rate and rhythm. ABDOMEN: Soft. Mildly distended. No guarding or rigidity. LABS: White count still elevated at 16.8. The abdominal cultures with an E coli and Enterobacter cloacae, both sensitive to Zosyn. DIAGNOSTIC IMPRESSION AND PLAN: Patient with abdominal abscess from a ruptured appendicitis, status post laparoscopic appendectomy. The patient is to continue at this time with Zosyn. Wait for the white count to normalize before transitioning to oral antibiotic therapy. Continue with supportive care. MMODL / IJN: [id number] /
[2018-06-11] MEDS: SODIUM CHLORIDE 0.9% 1,000 ML IV SCH ×3 (01:17→21:17)
[2018-06-11] MEDS: LEVOTHYROXINE 125 MCG TAB PO SCH (05:00)
[2018-06-11] MEDS: PIPERACILLIN-TAZOBACTAM 3.375 GM in SODIUM CHLORIDE 0.9% 100 ML IVPB SCH ×3 (05:00→21:16)
[2018-06-11 08:07] LABS: Basophils % (A) 0 %; Eosinophils # (A) 0.3 k/uL (0-0.7); Eosinophils % (A) 2 %; HCT 34.5 % (34.0-46.0); HGB 11.4 gm/dL (11.4-16.0); Lymphocytes # (A) 3.2 k/uL (1.0-4.8); Lymphocytes % (A) 26 %; MCH 31.1 pg (25.0-35.0); MCV 94.2 fL (80.0-100.0); Mean Platelet Volume 7.1; Monocytes # (A) 0.6 k/uL (0-1.0); Monocytes % (A) 5 %; Neutrophils # (A) 8.1 k/uL (1.3-7.7); Neutrophils % (A) 65 %; Platelet Count 224 k/uL (150-450); RBC 3.66 m/uL (3.80-5.40); RDW 13.1 % (11.5-15.5); WBC 12.5 k/uL (3.8-10.6)
[2018-06-11] MEDS: ENOXAPARIN 40 MG/0.4 ML SYRINGE SQ SCH (08:52)
[2018-06-11] MEDS: PANTOPRAZOLE 40 MG TABLET PO SCH (08:52)
[2018-06-11] MEDS: metroNIDAZOLE 500 MG TAB PO SCH ×3 (11:00→22:50)
--- NOTE | 2018-06-11 11:49 | P.PN ---
Subjective Progress Note Date: 06/11/18 Principal diagnosis: Appendicitis Patient says she is having more gassy pain today. She is passing flatus and having bowel movement. Today's white blood cell count 12.5 which is improved. She is afebrile. She is tolerating diet. Objective - Vital Signs Vital signs: Vital Signs Temp 98.3 F 06/11/18 08:53 Pulse 79 06/11/18 08:53 Resp 16 06/11/18 08:53 BP 111/74 06/11/18 08:53 Pulse Ox 94 L 06/11/18 08:53 Intake & Output 06/10/18 06/11/18 06/11/18 18:59 06:59 18:59 Intake Total 625 1800 Output Total 100 50 Balance 525 1750 Intake: Intake, IV Titration 625 1800 Amount Piperacillin-Tazobactam 3 200 .375 gm In Sodium Chloride 0.9% 100 ml @ 25 mls/hr IVPB Q8H D[facility] Rx#: [id number] Sodium Chloride 0.9% 1, 625 1000 000 ml @ 125 mls/hr IV . Q8H DAF[facility] Rx#:[id number] Sodium Chloride 0.9% 1, 600 000 ml @ 75 mls/hr IV . [id number] DAFNE Rx#:[id number] Output: Drainage 100 50 Abdomen 100 50 Other: Voiding Method Toilet # Voids 2 2 - Exam Abdomen: Soft, mild tenderness, CONNIE serous, incisions clean and dry - Labs CBC & Chem 7: 06/11/18 07:21 06/08/18 11:54 Labs: Abnormal Lab Results - Last 24 Hours (Table) 06/11/18 Range/Units 07:21 WBC 12.5 H (3.8-10.6) k/uL RBC 3.66 L (3.80-5.40) m/uL Neutrophils # 8.1 H (1.3-7.7) k/uL Microbiology - Last 24 Hours (Table) 06/08/18 20:00 Gram Stain - Final Other - Other Wound Culture - Final Escherichia coli Enterobacter cloacae Assessment and Plan (1) Acute appendicitis Narrative/Plan: Continue antibiotics. Continue diet. Ambulate. Current Visit: Yes Status: Acute Code(s): K35.80 - UNSPECIFIED ACUTE APPENDICITIS SNOMED Code(s): 62784893
[2018-06-11] MEDS: HYDROcodone/APAP 5-325MG 1 EACH TAB PO PRN (21:16)
--- NOTE | 2018-06-11 23:35 | PN ---
PROGRESS NOTE DATE OF SERVICE: 06/11/2018. REASON FOR STAY: Abdominal abscess from ruptured appendicitis. INTERVAL HISTORY: The patient is afebrile. The patient's abdominal pain has improved. She has been able to tolerate a clear liquid diet. The patient denies having any chest pain or shortness of breath or cough and no diarrhea. PHYSICAL EXAMINATION: Blood pressure is 119/80 with a pulse of 74, temperature 98.4. She is 97% on room air. General description is a middle aged female lying in bed in no distress. HEENT examination reveals no pallor or scleral icterus. Oral mucosal membranes are dry. LUNGS: Unlabored breathing. Clear to auscultation anteriorly. Heart S1, S2. Regular rate and rhythm. Abdomen soft. No tenderness. Extremities: No edema of the feet. LABS: White count down to 12.5. The abdominal culture has been finalized with E coli and Enterobacter species to ciprofloxacin along with anaerobic gram-negative bacilli. DIAGNOSTIC IMPRESSION AND PLAN: Patient with abdominal abscess from a ruptured appendicitis status post laparoscopic appendectomy and lysis of adhesions. The patient is currently on Zosyn and Flagyl that will be transitioned to oral Cipro and Flagyl for another 10 days with close outpatient followup. Prescription has been sent to the pharmacy. Continue supportive care. Questions and concerns were answered. MMODL / IJN: [id number] /
[2018-06-12] MEDS: SODIUM CHLORIDE 0.9% 1,000 ML IV SCH (03:58)
[2018-06-12] MEDS: PIPERACILLIN-TAZOBACTAM 3.375 GM in SODIUM CHLORIDE 0.9% 100 ML IVPB SCH ×3 (03:59→12:15)
[2018-06-12] MEDS: LEVOTHYROXINE 125 MCG TAB PO SCH (05:21)
[2018-06-12 07:45] VITALS: BP 126/83; PULSE 78; RESP 18; TEMP 98.2
[2018-06-12 08:42] LABS: Basophils # (A) 0.1 k/uL (0-0.2); Basophils % (A) 1 %; Eosinophils # (A) 0.3 k/uL (0-0.7); Eosinophils % (A) 2 %; HGB 12.8 gm/dL (11.4-16.0); Lymphocytes # (A) 3.1 k/uL (1.0-4.8); Lymphocytes % (A) 24 %; MCH 30.8 pg (25.0-35.0); MCHC 32.8 g/dL (31.0-37.0); Mean Platelet Volume 6.9; Monocytes # (A) 0.7 k/uL (0-1.0); Monocytes % (A) 5 %; Neutrophils # (A) 8.5 k/uL (1.3-7.7); Neutrophils % (A) 66 %; Platelet Count 254 k/uL (150-450); RBC 4.15 m/uL (3.80-5.40); RDW 13.1 % (11.5-15.5); WBC 12.9 k/uL (3.8-10.6)
[2018-06-12] MEDS: PANTOPRAZOLE 40 MG TABLET PO SCH (10:27)
[2018-06-12] MEDS: ENOXAPARIN 40 MG/0.4 ML SYRINGE SQ SCH (10:27)
[2018-06-12] MEDS: metroNIDAZOLE 500 MG TAB PO SCH (10:28)
--- NOTE | 2018-06-12 10:48 | P.DS ---
<Jennifer Felipe Una - Last Filed: 06/12/18 10:46> Providers Date of admission: 06/08/18 20:31 Expected date of discharge: 06/12/18 Attending physician: Jeanette Thompson Consults: 06/09/18 11:51 Consult Physician Routine Consulting Provider: Rah Krishnamurthy Consult Reason/Comments: Peritonitis Do you want consulting provider notified?: Yes Primary care physician: Benton Velazquez - Discharge Diagnosis(es) (1) Ruptured appendicitis Status: Acute (2) Sepsis Status: Acute (3) Leukocytosis Status: Acute (4) Obesity (BMI 30.0-34.9) Status: Acute (5) Peritonitis Status: Acute (6) Right lower quadrant abdominal pain Status: Acute (7) Acute appendicitis Status: Acute Hospital Course: 58-year-old female who was transferred from [place] secondary to abdominal pain. The patient was found to have acute appendicitis. Patient underwent robotic-assisted laparoscopic appendectomy, lysis of adhesions, and peritoneal lavage. Patient was found to have gangrenous ruptured purulent appendicitis near the appendix and a localized abscess with over 50cc of drainage. Patient has done well postoperatively with no immediate complications. She is tolerating PO diet. Passing flatus and BMs. No nausea or vomiting. Vitals have been stable. She is afebrile. WBC 12.9 and trending downward. infectious disease prescribed Cipro and Flagyl at the time of discharge. CONNIE drain discontinued on the day of discharge. She will follow up with Dr. Thompson on 06/21/2018. She is stable for discharge home today. Discharge Diagnosis: 1. Abdominal pain x 2 days 2. Acute appendicitis, ruptured with intra-abdominal abscess 3. Peritonitis 4. Sepsis, patient presented with leukocytosis, fever, and tachycardia, secondary to above 5. Obesity due to excess calories, BMI 34.7 Nurse practitioner note has been reviewed by physician. Signing provider agrees with the documented findings, assessment, and plan of care. Patient Condition at Discharge: Stable Plan - Discharge Summary Discharge Rx Participant: Yes New Discharge Prescriptions: New HYDROcodone/APAP 5-325MG [[place] 5] 1 each PO Q4HR PRN #18 tab PRN Reason: Pain Ciprofloxacin HCl [Cipro] 500 mg PO Q12HR #20 tablet metroNIDAZOLE [Flagyl] 500 mg PO TID #30 tab Continue Levothyroxine Sodium [Synthroid] 125 mcg PO DAILY Fish Oil/Dha/Epa [Fish Oil 1,200 mg Fish Oil] 1,000 mg PO DAILY Cholecalciferol (Vitamin D3) [Vitamin D3] 2,000 unit PO DAILY [place]/D3/Mag11/Zinc/Search Engine Marketing Strategist/Chuy/Bor [Caltrate 600+D Plus Tablet] 1 tab PO DAILY Turmeric Root Extract [Turmeric] 500 mg PO DAILY Discharge Medication List [place]bin/D3/Mag11/Zinc/Search Engine Marketing Strategist/Chuy/Bor [Caltrate 600+D Plus Tablet] 1 tab PO DAILY 06/08 [History] Cholecalciferol (Vitamin D3) [Vitamin D3] 2,000 unit PO DAILY 06/08/18 [History] Fish Oil/Dha/Epa [Fish Oil 1,200 mg Fish Oil] 1,000 mg PO DAILY 06/08/18 [ History] Levothyroxine Sodium [Synthroid] 125 mcg PO DAILY 06/08/18 [History] Turmeric Root Extract [Turmeric] 500 mg PO DAILY 06/08/18 [History] HYDROcodone/APAP 5-325MG [[place] 5] 1 each PO Q4HR PRN #18 tab 06/09/18 [Rx] Ciprofloxacin HCl [Cipro] 500 mg PO Q12HR #20 tablet 06/12/18 [Rx] metroNIDAZOLE [Flagyl] 500 mg PO TID #30 tab 06/12/18 [Rx] Follow up Appointment(s)/Referral(s): Jeanette Thompson MD [STAFF PHYSICIAN] - 06/20/18 8:40 am (Appointment set at [address], [address] [place] [address] ) Benton Velazquez MD [Primary Care Provider] - 06/14/18 11:30 am Rah Krishnamurthy MD [STAFF PHYSICIAN] - 06/19/18 9:45 am Patient Instructions/Handouts: Appendicitis (GEN), Peritonitis (DC) Activity/Diet/Wound Care/Special Instructions: You make shower. No tub baths or soaking. No driving while taking [place]. No lifting over 10 pounds in 1 week. Diet as tolerated. Primary care physician to draw a CBC to evaluate WBC 2-3 days after discharge. Discharge Disposition: HOME SELF-CARE <Jeanette Thompson N - Last Filed: 06/12/18 17:06> Procedures: Patient felt much better with bowel movements. CONNIE was completely serous with moderate decreased output. Dressing removed without cellulitis or infection. Patient verbalized understanding of discharge instructions. Patient deemed stable for discharge.
--- NOTE | 2018-06-12 13:51 | PN ---
PROGRESS NOTE DATE OF SERVICE: 06/12/2018 REASON FOR FOLLOWUP VISIT: Abdominal abscess from ruptured appendicitis. INTERVAL HISTORY: The patient is currently afebrile. She is breathing comfortably. Patient denies having any chest pain. No shortness of breath. No cough. No abdominal pain. No nausea, vomiting, no diarrhea. Tolerating her diet. PHYSICAL EXAMINATION: Blood pressure 126/83 with a pulse of 78, temperature 98.2. She is 93% on room air. General description is a middle-aged female, up in the room in no distress. RESPIRATORY SYSTEM: Unlabored breathing, clear to auscultation anteriorly. HEART: S1, S2. Regular rate and rhythm. ABDOMEN: Soft, no tenderness. LABS: White count slightly elevated at 12.9. Wound culture, anaerobic gram-negative bacilli, Escherichia coli, Enterobacter. DIAGNOSTIC IMPRESSION AND PLAN: Patient with abdominal sepsis from ruptured appendicitis, status post laparoscopic appendectomy. The patient's white count is elevated: however, the patient insisted on going home. She has been transitioned over to oral Flagyl on the basis of the cultures available. Instructed to have a CBC repeat in a week and if any worsening of the white count or if the patient develops any fever, let us know right away. Continue with supportive care. MMODL / IJN: [id number] /
== END 2018-06-12 14:45 | disposition home or self-care (01) | DRG 853 ==
LOC: EC 00:45 → 4SSUR 01:51 → OBSVTOIN 20:31
PROVIDERS: ADMIT Surgery Plastic and Reconstructive Surgery; ATTEND Surgery Plastic and Reconstructive Surgery
PROC: 0DNW4ZZ Release Peritoneum, Percutaneous Endoscopic Approach (ICD-10-PCS; 2018-06-08)
PROC: 8E0W4CZ Robotic Assisted Procedure of Trunk Region, Percutaneous Endoscopic Approach (ICD-10-PCS; 2018-06-08)
PROC: 0DTJ4ZZ Resection of Appendix, Percutaneous Endoscopic Approach (ICD-10-PCS; principal; 2018-06-08 09:30)
DX: A41.51 Sepsis due to Escherichia coli [E. coli] (principal); K35.33 Acute appendicitis with perforation, localized peritonitis, and gangrene, with abscess; E66.09 Other obesity due to excess calories; Z96.649 Presence of unspecified artificial hip joint; E03.9 Hypothyroidism, unspecified; K66.0 Peritoneal adhesions (postprocedural) (postinfection); Z68.34 Body mass index [BMI] 34.0-34.9, adult; Z87.891 Personal history of nicotine dependence; Z83.3 Family history of diabetes mellitus; Z82.49 Family history of ischemic heart disease and other diseases of the circulatory system; Z79.890 Hormone replacement therapy; Z98.51 Tubal ligation status; Z88.5 Allergy status to narcotic agent; Z88.2 Allergy status to sulfonamides; Z88.8 Allergy status to other drugs, medicaments and biological substances
CPT/HCPCS: 80048; 85025; 87070; 87075; 87077; 87186; 87205; 88304; 96374; 96375; 99285

== ENCOUNTER → 2018-07-24 | Outpatient (CLI) | payer OTHER ==
--- NOTE | 2018-07-24 14:34 | MM ---
Reason for exam: additional evaluation requested from prior study. Last mammogram was performed 1 year ago. History: Patient is postmenopausal, has history of other cancer at age 49, has history of breast cancer at age 48, and had previous chest radiation therapy at age 48. Family history of breast cancer in paternal aunt at age 80. Benign US RT VAD breast biopsy of the right breast, June 01, 2012. Benign US RT VAD breast biopsy of the right breast, June 01, 2012. Excisional biopsy of the right breast, October 04, 2008. Malignant right mammotome panel of the right breast, September 18, 2008. Lumpectomy, 2008. Radiation therapy of the right breast, 2008. Took tamoxifen for 10 years. Took antineoplastic beginning at age 48. Physical Findings: Nurse did not find any significant physical abnormalities on exam. MG 3D Diag Mammo W/Cad PERNELL Bilateral CC and MLO view(s) were taken. Prior study comparison: July 18, 2017, bilateral MG 3d diag mammo w/cad PERNELL. June 01, 2016, bilateral MG 3d diag mammo w/cad PERNELL. There are scattered fibroglandular densities. No suspicious abnormality. Post therapy change on the right. These results were verbally communicated with the patient and result sheet given to the patient on 07/24/18. ASSESSMENT: Benign, BI-RAD 2 RECOMMENDATION: Follow-up diagnostic mammogram of both breasts in 1 year.
--- NOTE | 2018-07-25 17:11 | BD ---
EXAMINATION TYPE: Axial Bone Density DATE OF EXAM: 07/24/2018 COMPARISON: NONE CLINICAL HISTORY: 58-year-old female postmenopausal screening without HRT Height: 5 FT 5 1/4 IN Weight: 210 FRAX RISK QUESTIONS: Family History (Parent hip fracture): YES History of Fracture in Adulthood: YES RISK FACTORS HISTORY OF: Surgery to Spine/Hip(right/left)/Wrist (right/left): RT HIP REPLACED When: Family History of Osteoporosis: YES Active: YES Postmenopausal woman: AGE 49 MEDICATIONS: Thyroid Medications: YES Which medication: LEVOTHYROXINE How Lon YEARS Additional Medications: LEVOTHYROXINE, NAPROXEN, Additional History: BREAST CANCER 2008 THYROID CANCER 2009 EXAM MEASUREMENTS: Bone mineral densitometry was performed using the [employer] System. Bone mineral density as measured about the Lumbar spine is: ----- L1-L4(G/cm2): 1.336 T Score Values are as follows: ----- L2: 1.3 ----- L3: 1.9 ----- L4: 1.0 ----- L1-L4: 1.3 Bone mineral density has: INCREASED 1.0 % since study of: 2016 Bone mineral density about the L hip (g/cm2): 1.071 T Score values are as follows: -----L Neck: 0.2 -----L Total: 0.1 Bone mineral density has: DECREASED -2.9 % since study of: 2017 IMPRESSION: Normal (Values between +1 and -1 indicate normal bone mass). Consider repeating this study in 5 year s or sooner if there is some new clinical indication. NOTE: T-SCORE=SD OF THE YOUNG ADULT MEAN.
== END | disposition home or self-care (01) ==
LOC: RADMAMWWP 13:32
PROVIDERS: ATTEND Internal Medicine Hematology & Oncology
DX: Z08 Encounter for follow-up examination after completed treatment for malignant neoplasm (principal); Z78.0 Asymptomatic menopausal state; Z85.3 Personal history of malignant neoplasm of breast
CPT/HCPCS: 77062; 77066; 77080

== ENCOUNTER → 2019-08-06 | Outpatient (CLI) | payer OTHER ==
--- NOTE | 2019-08-06 14:05 | XR ---
EXAMINATION TYPE: XR foot complete LT DATE OF EXAM: 08/06/2019 CLINICAL HISTORY: Left foot pain. Prior fracture of the left fifth metatarsal. TECHNIQUE: Frontal, lateral, and oblique images of the left foot are obtained. COMPARISON: None FINDINGS: There is no acute fracture/dislocation evident in the left foot. There are small plantar a nd Achilles heel spurs. There is narrowing of the tibiotalar joint space and mild degenerative spurri ng of the dorsal talonavicular joint. There is lateral subluxation of the fifth metacarpal phalangeal joint. Flexion deformities of the distal interphalangeal joints limiting evaluation of the second th rough fifth digits. There is a healed fracture deformity of the fifth metatarsal with cortical thick ening and irregularity. There is diffuse osseous demineralization. The overlying soft tissue appears unremarkable. IMPRESSION: 1. No acute fracture or dislocation in the left foot. 2. Old fracture deformity of the fifth metatarsal with cortical irregularity and cortical thickening. Lateral subluxation of the fifth metacarpal phalangeal joint is also seen. 3. 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 4. Diffuse osseous demineralization. 5. Plantar and Achilles heel spurs.
== END | disposition home or self-care (01) ==
LOC: RADXRMAIN 12:45
PROVIDERS: ATTEND Podiatrist Foot & Ankle Surgery
DX: M12.872 Other specific arthropathies, not elsewhere classified, left ankle and foot (principal); S92.352D Displaced fracture of fifth metatarsal bone, left foot, subsequent encounter for fracture with routine healing; G90.09 Other idiopathic peripheral autonomic neuropathy

== ENCOUNTER → 2019-08-06 | Outpatient (CLI) | payer OTHER | END | disposition home or self-care (01) | LOC: RADMAMWWP 12:42 | PROVIDERS: ATTEND Obstetrics & Gynecology | DX: Z08 Encounter for follow-up examination after completed treatment for malignant neoplasm (principal); Z85.3 Personal history of malignant neoplasm of breast; Z90.11 Acquired absence of right breast and nipple | CPT/HCPCS: 77062; 77066 ==

== ENCOUNTER → 2020-08-19 | Outpatient (CLI) | payer OTHER ==
--- NOTE | 2020-08-19 16:52 | BD ---
EXAMINATION TYPE: Axial Bone Density DATE OF EXAM: 08/19/2020 COMPARISON: 06/01/2016 CLINICAL HISTORY: Postmenopausal screening Height: 65 IN Weight: 209 LBS FRAX RISK QUESTIONS: Family History (Parent hip fracture): MOTHER History of Fracture in Adulthood: LT FOOT AGE 58 RISK FACTORS HISTORY OF: History of Wrist Fracture: RT WRIST AGE 9 Surgery to Hip(right): AGE 41 Family History of Osteoporosis: MOTHER/GRANDMOTHER Active: YES Postmenopausal woman: AGE 49 MEDICATIONS: Thyroid Medications: YES Which medication: LEVOTHYROXINE How Lon+ YEARS Additional Medications: CALCIUM, VIT D, LEVOTHYROXINE, LIPITOR, ARTHRITIS MEDS, MULTI VIT, Additional History: BREAST CANCER WITH RADIATION. THYROID CANCER EXAM MEASUREMENTS: Bone mineral densitometry was performed using the [employer] System. Bone mineral density as measured about the Lumbar spine is: ----- L1-L4(G/cm2): 1.406 T Score Values are as follows: ----- L2: 0.6 ----- L3: 2.7 ----- L4: 1.9 ----- L1-L4: 1.9 Bone mineral density has: Increased 3.6% since study of: 07/24/2018 Bone mineral density about the L hip (g/cm2): 1.126 T Score values are as follows: -----L Neck: 0.6 -----L Total: 0.0 Bone mineral density has: Decreased -1.4% since study of: 07/24/2018 IMPRESSION: Normal (Values between +1 and -1 indicate normal bone mass). Consider repeating this study in 5 year s or sooner if there is some new clinical indication. NOTE: T-SCORE=SD OF THE YOUNG ADULT MEAN.
--- NOTE | 2020-08-20 14:38 | MM ---
Reason for exam: screening (asymptomatic). Last mammogram was performed 1 year ago. History: Patient is postmenopausal, has history of other cancer at age 49, has history of breast cancer at age 48, and had previous chest radiation therapy at age 48. Family history of breast cancer in paternal aunt at age 80. Benign US RT VAD breast biopsy of the right breast, June 01, 2012. Benign US RT VAD breast biopsy of the right breast, June 01, 2012. Excisional biopsy of the right breast, October 04, 2008. Malignant right mammotome panel of the right breast, September 18, 2008. Lumpectomy, 2008. Radiation therapy of the right breast, 2008. Took tamoxifen for 10 years. Took antineoplastic beginning at age 48. Physical Findings: A clinical breast exam by your physician is recommended on an annual basis and results should be correlated with mammographic findings. MG 3D Screening Mammo W/Cad Bilateral CC and MLO view(s) were taken. Prior study comparison: August 06, 2019, bilateral MG 3d diag mammo w/cad [facility]. July 24, 2018, bilateral MG 3d diag mammo w/cad [facility]. There are scattered fibroglandular densities. Stable benign calcifications. Stable post operative changes right breast. No significant changes when compared with prior studies. ASSESSMENT: Benign, BI-RAD 2 RECOMMENDATION: Routine screening mammogram of both breasts in 1 year.
== END | disposition home or self-care (01) ==
LOC: RADMAMWWP 15:12
PROVIDERS: ATTEND Obstetrics & Gynecology
DX: Z12.31 Encounter for screening mammogram for malignant neoplasm of breast (principal); Z78.0 Asymptomatic menopausal state
CPT/HCPCS: 77063; 77067; 77080

== ENCOUNTER → 2021-10-06 | Outpatient (CLI) | payer OTHER ==
--- NOTE | 2021-10-06 12:47 | MM ---
Reason for Exam: Screening (asymptomatic). Last mammogram was performed 1 year(s) and 2 month(s) ago. Patient History: Menarche at age 12. First Full-Term at age 22. Postmenopausal. Breast cancer, right, age 48. Previous chest radiation therapy at age 48. 2008, Lumpectomy. 06/01/2012, Benign Core Biopsy on the right side. 06/01/2012, Benign Core Biopsy on the right side. 09/18/2008, Malignant Core Biopsy on the right side. 2008, Radiation Therapy on the right side. Paternal aunt had breast cancer, age 80. Film Views: Bilateral CC views were taken. Bilateral MLO views were taken. Prior Study Comparison: 07/24/2018 Bilateral Diagnostic Mammogram, [facility]. 08/06/2019 Bilateral Diagnostic Mammogram, [facility]. 08/19/2020 Bilateral Screening Mammogram, [facility]. Tissue Density: There are scattered fibroglandular densities. Findings: Analyzed By CAD. Postsurgical and posttreatment changes right breast. A few scattered benign oil cyst calcifications are present low, right greater than left. No significant change from prior exams. Overall Assessment: Benign, BI-RAD 2 Management: Screening Mammogram of both breasts in 1 year. A clinical breast exam by your physician is recommended on an annual basis and results should be correlated with mammographic findings. Patient should continue monthly self breast exams.
== END | disposition home or self-care (01) ==
LOC: RADMAMWWP 11:04
PROVIDERS: ATTEND Obstetrics & Gynecology
DX: Z12.31 Encounter for screening mammogram for malignant neoplasm of breast (principal); Z80.3 Family history of malignant neoplasm of breast
CPT/HCPCS: 77063; 77067

== ENCOUNTER → 2022-02-08 | Outpatient (CLI) | payer OTHER ==
--- NOTE | 2022-02-08 09:35 | USB ---
Reason for Exam: Clinical finding. Patient History: Menarche at age 12. First Full-Term at age 22. Postmenopausal. Breast cancer, right, age 48. Previous chest radiation therapy at age 48. 10/04/2008, Excisional Biopsy on the Right side. 2008, Lumpectomy. 06/01/2012, Benign Core Biopsy on the right side. 06/01/2012, Benign Core Biopsy on the right side. 09/18/2008, Malignant Core Biopsy on the right side. 2008, Radiation Therapy on the right side. Paternal aunt had breast cancer, age 80. Technique: Method: Whole Breast Handheld. Prior Study Comparison: 08/06/2019 Bilateral Diagnostic Mammogram, [facility]. 08/19/2020 Bilateral Screening Mammogram, [facility]. 10/06/2021 Bilateral MG 3D screening mammo w/cad, [facility]. Findings: The whole breast of the right breast, the axilla of the right breast and the retroareolar of the right breast were scanned. Fatty breast tissue throughout. At the 10:00 peripheral surgical/lumpectomy site, there is a dense area of calcification and shadowing corresponding to the scar and fat necrosis calcification seen on mammogram. 6 month follow-up from the patient's last mammogram in September can reassess the surgical site. No other solid or cystic lesion or axillary lymphadenopathy. Overall Assessment: Probably benign, BI-RAD 3 Management: Diagnostic Mammogram of the right breast in 2 months. To reassess the patient's right breast lumpectomy site to exclude any developing nodularity (total 6 month follow-up compared to the last mammogram performed in 10/06/2021). Patient should continue monthly self breast exams. Further clinical management of patient's right breast heaviness/pain. Electronically signed and approved by: Vicki Murphy M.D. Radiologist
== END | disposition home or self-care (01) ==
LOC: RADUSWWP 08:45
PROVIDERS: ATTEND Family Medicine
DX: N63.15 Unspecified lump in the right breast, overlapping quadrants (principal)

== ENCOUNTER → 2022-03-31 | Outpatient (CLI) | payer OTHER ==
[2022-03-31 15:35] LABS: T4, Free (Free Thyroxine) 1.67 ng/dL (0.800-1.800)
== END | disposition home or self-care (01) ==
LOC: LABWHC1 08:46
PROVIDERS: ATTEND Internal Medicine
DX: E89.0 Postprocedural hypothyroidism (principal)
CPT/HCPCS: 36415; 84439; 84443

== ENCOUNTER → 2022-03-31 | Outpatient (CLI) | payer OTHER ==
--- NOTE | 2022-03-31 09:33 | MM ---
Reason for Exam: Follow-up at short interval from prior study. Last screening mammogram was performed 6 month(s) ago. Patient History: Menarche at age 12. First Full-Term at age 22. Postmenopausal. Patient has history of breast feeding. Breast cancer, right, age 48. Previous chest radiation therapy at age 48. 10/04/2008, Excisional Biopsy on the Right side. 2008, Lumpectomy. 06/01/2012, Benign Core Biopsy on the right side. 06/01/2012, Benign Core Biopsy on the right side. 09/18/2008, Malignant Core Biopsy on the right side. 2008, Radiation Therapy on the right side. Paternal aunt had breast cancer, age 80. Prior Study Comparison: 08/06/2019 Bilateral Diagnostic Mammogram, [facility]. 08/19/2020 Bilateral Screening Mammogram, [facility]. 10/06/2021 Bilateral MG 3D screening mammo w/cad, [facility]. Tissue Density: Right: There are scattered fibroglandular densities. Findings: Analyzed By CAD. There are surgical clips and distortion along with dystrophic calcifications and mammotome biopsy clip in the right breast redemonstrated posterior upper outer aspect. Skin thickening consistent with posttreatment changes again seen. No suspicious new mass or worrisome group of microcalcification in the right breast. Overall Assessment: Benign, BI-RAD 2 Management: Diagnostic Mammogram of both breasts in 6 months. A clinical breast exam by your physician is recommended on an annual basis and results should be correlated with mammographic findings. This exam should not preclude additional follow-up of suspicious palpable abnormalities. Results were given to the patient verbally at the time of exam. Electronically signed and approved by: Vargas Landrum M.D.
== END | disposition home or self-care (01) ==
LOC: RADMAMWWP 08:42
PROVIDERS: ATTEND Family Medicine
DX: N63.15 Unspecified lump in the right breast, overlapping quadrants (principal); Z78.0 Asymptomatic menopausal state; Z80.3 Family history of malignant neoplasm of breast
CPT/HCPCS: 77061; 77065

== ENCOUNTER → 2022-10-12 | Outpatient (CLI) | payer OTHER ==
--- NOTE | 2022-10-12 11:02 | MM ---
Reason for Exam: Follow-up at short interval from prior study. Last screening mammogram was performed 12 month(s) ago. Patient History: Menarche at age 12. First Full-Term at age 22. Postmenopausal. Patient has history of breast feeding. Breast cancer, right, age 48. Previous chest radiation therapy at age 48. 10/04/2008, Excisional Biopsy on the Right side. 2008, Lumpectomy. 06/01/2012, Benign Core Biopsy on the right side. 06/01/2012, Benign Core Biopsy on the right side. 09/18/2008, Malignant Core Biopsy on the right side. 2008, Radiation Therapy on the right side. Paternal aunt had breast cancer, age 80. Prior Study Comparison: 06/03/2014 Bilateral Diagnostic Mammogram, [facility]. 06/01/2016 Bilateral Diagnostic Mammogram, [facility]. 07/18/2017 Bilateral Diagnostic Mammogram, [facility]. 07/24/2018 Bilateral Diagnostic Mammogram, [facility]. 08/06/2019 Bilateral Diagnostic Mammogram, [facility]. 08/19/2020 Bilateral Screening Mammogram, [facility]. 10/06/2021 Bilateral MG 3D screening mammo w/cad, [facility]. 02/08/2022 Right US breast RT, [facility]. 03/31/2022 Right MG 3D diag mammo w/cad RT, [facility]. Tissue Density: The breast tissue is almost entirely fat. Findings: Analyzed By CAD. Posttreatment changes to the right breast appear stable. Multiple surgical clips and calcifications are stable. Left breast no new suspicious masses, calcifications or distortions. Overall Assessment: Benign, BI-RAD 2 Management: Screening Mammogram of both breasts in 1 year. Results were given to the patient verbally at the time of exam. Patient should continue monthly self-breast exams. A clinical breast exam by your physician is recommended on an annual basis. This exam should not preclude additional follow-up of suspicious palpable abnormalities. Note on Suzette scores and lifetime risk: 1. A Suzette score greater than 3% is considered moderate risk. If this is the case, consider specialist referral to assess eligibility for a risk reducing agent. 2. If overall lifetime risk for the development of breast cancer is 20% or higher, the patient may qualify for future screening with alternating mammogram and breast MRI. Electronically signed and approved by: Toni Mtz DO
--- NOTE | 2022-10-12 17:56 | BD ---
EXAMINATION TYPE: Axial Bone Density DATE OF EXAM: 10/12/2022 CLINICAL HISTORY: 62 years old Female. ICD-10 CODE: Z78.0 ASYMPTOMATIC MENOPAUSAL STATE Height: 64.75 Weight: 207.5 FRAX RISK QUESTIONS: Alcohol (3 or more units per day): no Family History (Parent hip fracture): Mother, Sister Glucocorticoids (More than 3mos): no History of Fracture in Adulthood: Bilateral Feet Secondary Osteoporosis: 1. Type 1 Diabetes: no 2. Hyperthyroidism: no 3. Menopause before 45: no 4. Malnutrition: no 5. Chronic liver disease: no Rheumatoid Arthritis: no Current Tobacco Use: no RISK FACTORS HISTORY OF: Hip Fracture (Right/Left): no Spine Fracture: no History of Wrist Fracture: no Surgery to Spine/Hip(right/left)/Wrist (right/left): Rt Hip replacement When: 2005 Family History of Osteoporosis: Maternal Grandmother, Paternal Grandmother, Mother Active: yes Diet low in dairy products/other sources of calcium: no Postmenopausal woman: yes Take estrogen and/or progesterone medications: no Lost more than 2 inches in height since high school: no Frequent falls: no Poor Health: no Hyperparathyroidism: no Adrenal Insufficiency: no MEDICATIONS: Prednisone or other steroids: no Thyroid Medications: Levothyroxin How Long:Since 2009 Osteoporosis Medications: no Additional Medications: Vit D, Bioflex, Calcium, Zinc, Magnesium, Cholesterol, Additional History: Thyroid Cancer 2009, Breast Cancer with radiation 2008 EXAM MEASUREMENTS: Bone mineral densitometry was performed using the [employer] System. Bone mineral density as measured about the Lumbar spine is: ----- L1-L4(G/cm2): 1.441 T Score Values are as follows: ----- L1: 1.2 ----- L2: 1.9 ----- L3: 3.2 ----- L4: 2.1 ----- L1-L4: 2.2 Z Score Values are as follows: ----- L1: 1.7 ----- L2: 2.4 ----- L3: 3.7 ----- L4: 2.6 ----- L1-L4: 2.7 Bone mineral density has: increased 2.5 % since study of: 08/19/2020 Bone mineral density about the L hip (g/cm2): 1.041 T Score values are as follows: -----L Neck: 2.4 -----L Total: 0.3 Z Score values are as follows: -----L Neck: 3.2 -----L Total: 0.7 Bone mineral density has: increased 3.6 % since study of: 08/19/2020 FRAX%s: The graph provided illustrates a 14.9% chance for a major osteoporotic fx and a 0.0% chance f or the hips probability for fx in 10 years time. IMPRESSION: Normal (Values between +1 and -1 indicate normal bone mass). Consider repeating this study in 5 year s or sooner if there is some new clinical indication. NOTE: T-SCORE=SD OF THE YOUNG ADULT MEAN.
== END | disposition home or self-care (01) ==
LOC: RADBDWWP 09:53
PROVIDERS: ATTEND Family Medicine
DX: R92.8 Other abnormal and inconclusive findings on diagnostic imaging of breast (principal); Z78.0 Asymptomatic menopausal state; Z80.3 Family history of malignant neoplasm of breast; Z92.3 Personal history of irradiation
CPT/HCPCS: 77062; 77066; 77080

== ENCOUNTER → 2023-10-19 | Outpatient (CLI) | payer OTHER ==
[2023-10-19 15:11] LABS: T4, Free (Free Thyroxine) 1.63 ng/dL (0.80-1.80)
--- NOTE | 2023-10-20 12:01 | MM ---
Reason for Exam: Screening (asymptomatic). Last screening mammogram was performed 12 month(s) ago. Patient History: Menarche at age 12. First Full-Term at age 22. Postmenopausal. Patient has history of breast feeding. Breast cancer, right, age 48. Previous chest radiation therapy at age 48. 10/04/2008, Excisional Biopsy on the Right side. 2008, Lumpectomy. 06/01/2012, Benign Core Biopsy on the right side. 06/01/2012, Benign Core Biopsy on the right side. 09/18/2008, Malignant Core Biopsy on the right side. 2008, Radiation Therapy on the right side. Paternal aunt had breast cancer, age 80. Prior Study Comparison: 10/06/2021 Bilateral MG 3D screening mammo w/cad, [facility]. 03/31/2022 Right MG 3D diag mammo w/cad RT, [facility]. 10/12/2022 Bilateral MG 3D diag mammo w/cad [facility], [facility]. Tissue Density: There are scattered areas of fibroglandular density. Findings: Analyzed By CAD. There is no suspicious group of microcalcifications or new suspicious mass in either breast. Post biopsy changes involving the right breast with benign-appearing calcifications. Findings are stable. There is skin thickening seen which is stable within the right breast likely related to previous therapy. Overall Assessment: Benign, BI-RAD 2 Management: Screening Mammogram of both breasts in 1 year. . Patient should continue monthly self-breast exams. A clinical breast exam by your physician is recommended on an annual basis. This exam should not preclude additional follow-up of suspicious palpable abnormalities. Note on Suzette scores and lifetime risk: 1. A Suzette score greater than 3% is considered moderate risk. If this is the case, consider specialist referral to assess eligibility for a risk reducing agent. 2. If overall lifetime risk for the development of breast cancer is 20% or higher, the patient may qualify for future screening with alternating mammogram and breast MRI. Electronically signed and approved by: Ken Harvey M.D. Radiologis
== END | disposition home or self-care (01) ==
LOC: RADMAMWWP 08:34
PROVIDERS: ATTEND Family Medicine
DX: Z12.31 Encounter for screening mammogram for malignant neoplasm of breast (principal); E89.0 Postprocedural hypothyroidism; Z78.0 Asymptomatic menopausal state; Z80.3 Family history of malignant neoplasm of breast
CPT/HCPCS: 77063; 77067; 84439; 84443